=== PATIENT | male | born 1970 | race Caucasian/White ===

== ENCOUNTER 2016-11-29 01:15 | Observation (INO) | payer BC ==
[2016-11-29] MEDS ORDERED: BABY ASPIRIN 81 MG CHEW PO ONE (01:40)
[2016-11-29] MEDS ORDERED: Nitrostat 0.4 MG (ED) SL ONE (01:40)
[2016-11-29] MEDS ORDERED: Sodium Chloride 0.9% 1000 ML 1,000 ML IV SCH (01:45)
[2016-11-29 01:48] LABS: BASOPHIL % 0.6 % (0.0-0.4); Eosinophil % 2.5 % (0.00-5.0); Lymphocytes % 23.9 % (24.0-44.0); Mean Cell Volume 87.6 fl (78-100); Mean Corpuscular Hemoglobin 30.3 pg (26-32); Mean Platelet Volume 9.8 fl (6-9.5); Platelet Count 209 K/mm3 (150-450); Red Blood Count 4.99 M/mm3 (4.1-5.6); Red Cell Distribution Width 12.7 % (11.5-14.0); White Blood Count 8.4 K/mm3 (4.0-10.5)
[2016-11-29] MEDS ORDERED: BABY ASPIRIN 81 MG CHEW ONE (01:50)
[2016-11-29 01:55] LABS: INR 1.05 (0.8-3.0); PROTIME 11.7 SECONDS (8.83-12.87)
--- NOTE | 2016-11-29 02:04 | ERPHSYRPT ---
- History of Present Illness Time Seen by Provider: 11/29/16 01:34 Historian: patient Patient Subjective Stated Complaint: Pt with midsternal chest pain that started at rest while laying on the couch for a few hours. Reports shortness of breath with pain. Reports nausea. Denies vomiting. Reports diaphoresis. Reports that pain is 8/10 dull radiating from midsternum through to back and down left arm. No cardiac hx. Triage Nursing Assessment: Pt alert, oriented, answers all questions appropriately. Skin flushed, warm, dry. Resps non-labored. EKG at triage. library monitor sinus rhythm. SPO2 99% room air. Lung sounds CTA bilat non- labored. Heart RRR. + bowel sounds x 4 quadrants. Physician History: PATIENT WITH A HISTORY OF CROHNS DISEASE COMPLAINS OF ACUTE ONSET SUBSTERNAL CHEST PAINS AT 2330 WITH PERSISTENT DISCOMFORT UNTO ARRIVAL TO EMERGENCY. CHEST PAIN SCALE 5/10 WITH RADIATION TO BACK AND LEFT ARM. HAS A STRONG FAMILY PHYSICIAN OF HEART DISEASE, FATHER WITH MYOCARDIAL INFARCTION FOLLOWED BY STENTS IN HIS MID 50'S. Timing/Duration: today Activities at Onset: none Quality: stabbing Location: substernal Severity of Pain-Max: moderate Severity of Pain-Current: moderate Modifying Factors: Improves With: nothing Prior Chest Pain/Cardiac Workup: no prior chest pain Nitro Today/Relief: provided by EMS Aspirin Treatment Today: no aspirin today Allergies/Adverse Reactions: Penicillins Allergy (Intermediate, Verified 11/29/16 01:31) Rash hydromorphone HCl [From Dilaudid] Adverse Reaction (Intermediate, Verified 11/29 01:31) hallucinating and violent morphine Adverse Reaction (Intermediate, Verified 11/29/16 01:31) hallucinating Home Medications: Mesalamine [Asacol] 0 mg PO 11/29/16 [History] Hx Tetanus, Diphtheria Vaccination/Date Given: Yes Hx Influenza Vaccination/Date Given: No Hx Pneumococcal Vaccination/Date Given: Yes (6 years ago) Immunizations Up to Date: Yes - Review of Systems Constitutional: No Fever, No Chills Eyes: No Symptoms Ears, Nose, & Throat: No Symptoms Respiratory: No Symptoms, No Cough, No Dyspnea Cardiac: Chest Pain, No Edema, No Syncope Abdominal/Gastrointestinal: No Symptoms, Appetite Changes, No Abdominal Pain, No Nausea, No Vomiting, No Diarrhea Genitourinary Symptoms: No Symptoms, No Dysuria Musculoskeletal: No Symptoms, No Back Pain, No Neck Pain Skin: No Rash Neurological: No Dizziness, No Focal Weakness, No Sensory Changes Psychological: No Symptoms Endocrine: No Symptoms All Other Systems: Reviewed and Negative - Past Medical History Pertinent Past Medical History: Yes Neurological History: No Pertinent History ENT History: No Pertinent History Cardiac History: No Pertinent History Respiratory History: No Pertinent History Endocrine Medical History: No Pertinent History Musculoskeletal History: Fractures GI Medical History: Crohns Disease History: No Pertinent History Psycho-Social History: No Pertinent History Male Reproductive Disorders: No Pertinent History - Past Surgical History Past Surgical History: Yes Neuro Surgical History: No Pertinent History Cardiac: No Pertinent History Respiratory: No Pertinent History Gastrointestinal: Appendectomy, Cholecystectomy, Colon Resection Genitourinary: No Pertinent History Musculoskeletal: No Pertinent History Male Surgical History: Vasectomy Other Surgical History: skin grafts - Social History Smoking Status: Never smoker Exposure to second hand smoke: No Drug Use: none Patient Lives Alone: No - Nursing Vital Signs Nursing Vital Signs: Initial Vital Signs Temperature 97.6 F 11/29/16 01:23 Pulse Rate 57 L 11/29/16 01:23 Respiratory Rate 16 11/29/16 01:23 Blood Pressure 140/90 11/29/16 01:23 O2 Sat by Pulse Oximetry 99 11/29/16 01:23 Pain Scale Pain Intensity 0 - Physical Exam General Appearance: no apparent distress, alert Eye Exam: PERRL/EOMI, eyes nml inspection Ears, Nose, Throat Exam: normal ENT inspection, moist mucous membranes Neck Exam: normal inspection, non-tender, supple, full range of motion Respiratory Exam: normal breath sounds, lungs clear, No respiratory distress Cardiovascular Exam: regular rate/rhythm, normal heart sounds Gastrointestinal/Abdomen Exam: soft, normal bowel sounds, No tenderness, No mass Back Exam: normal inspection, No CVA tenderness, No vertebral tenderness Extremity Exam: normal inspection, normal range of motion Neurologic Exam: alert, oriented x 3, cooperative, normal mood/affect, sensation nml, No motor deficits Skin Exam: normal color, warm, dry SpO2: 99 Oxygen Delivery: Room Air - Course EKG Interpreted by Me: RATE, Sinus Rhythm, NORMAL AXIS - Radiology Exams Chest X-ray Interpretation: Interpreted by me, Negative, No Fracture Ordered Tests: Active Orders 24 hr Category Date Time Status Up With Assistance ROUTINE Activity 11/29/16 03:00 Ordered Admission/Status Order ROUTINE Care 11/29/16 02:59 Ordered Call Admit Doctor for Orders ROUTINE Care 11/29/16 02:59 Ordered Stock Associate STAT Care 11/29/16 01:40 Active Code Status Order ROUTINE Care 11/29/16 02:59 Ordered EKG-ER Only STAT Care 11/29/16 01:40 Active IV Care Q6H Care 11/29/16 02:59 Ordered IV Insertion STAT Care 11/29/16 01:40 Active Implement Chest Pain Pathway ROUTINE Care 11/29/16 02:59 Ordered Oxygen-ED Only NASAL CANNULA 2 lpm Care 11/29/16 01:40 Active Galdino Rubin, Apply ROUTINE Care 11/29/16 02:59 Ordered Telemetry ROUTINE Care 11/29/16 02:59 Ordered Vital Signs Q4H Care 11/29/16 02:59 Ordered Weight,Daily 0600 Care 11/29/16 02:59 Ordered Cardiac Diet Diet 11/29/16 Breakfast Ordered CHEST 1 VIEW (PORTABLE) Stat Exams 11/29/16 01:40 Taken CBC W DIFF Stat Lab 11/29/16 01:44 Completed CMP Stat Lab 11/29/16 01:44 Completed D-DIMER QUANTITATION Stat Lab 11/29/16 01:44 Completed LIPID PROFILE AM.LAB Lab 11/29/16 04:00 Ordered NT PRO BNP Stat Lab 11/29/16 01:44 Completed PROTIME WITH INR Stat Lab 11/29/16 01:44 Completed TROPONIN Q3H Lab 11/29/16 01:44 Completed TROPONIN Q3H Lab 11/29/16 04:45 Ordered TROPONIN Q3H Lab 11/29/16 07:45 Ordered TROPONIN Q3H Lab 11/29/16 10:45 Ordered TROPONIN Q3H Lab 11/29/16 13:45 Ordered EKG Q8HX2,QAMX3,PRN RT 11/29/16 02:59 Ordered Pulse Oximetry Q4H RT 11/29/16 02:59 Ordered Transfer Order Routine Transfer 11/29/16 Ordered Medication Summary Generic Name Dose Route Start Last Admin Trade Name Freq PRN Reason Stop Dose Admin Sodium Chloride 1,000 mls @ 100 mls/hr 11/29/16 01:45 11/29/16 01:51 Sodium Chloride 0.9% 1000 Ml IV 12/29/16 01:44 100 mls/hr .Q10H MEHDI Administration Discontinued Medications Generic Name Dose Route Start Last Admin Trade Name Anny PRN Reason Stop Dose Admin Aspirin 324 mg 11/29/16 01:40 11/29/16 01:51 Baby Aspirin 81 Mg Chew PO 11/29/16 01:41 324 mg STAT ONE Administration Aspirin Confirm 11/29/16 01:50 Baby Aspirin 81 Mg Chew Administered 11/29/16 01:51 Dose 324 mg .ROUTE .STK-MED ONE Nitroglycerin 0.4 mg 11/29/16 01:40 11/29/16 01:51 Nitrostat 0.4 Mg (Ed) SL 11/29/16 01:41 0.4 mg STAT ONE Administration Nitroglycerin 1 gm 11/29/16 02:20 11/29/16 02:26 Nitro-Bid 2% Ud Packets TOP 11/29/16 02:21 1 gm STAT ONE Administration Nitroglycerin Confirm 11/29/16 02:25 Nitro-Bid 2% Ud Packets Administered 11/29/16 02:26 Dose 1 gm .ROUTE .STK-MED ONE Lab/Rad Data: Laboratory Result Diagrams 11/29/16 01:44 11/29/16 01:44 Laboratory Results 11/29/16 11/29/16 11/29/16 Range/Units 01:44 01:44 01:44 WBC (4.0-10.5) K/mm3 RBC (4.1-5.6) M/mm3 Hgb (12.5-18.0) gm/dl Hct (42-50) % MCV (78-100) fl MCH (26-32) pg MCHC (32-36) g/dl RDW (11.5-14.0) % Plt Count (150-450) K/mm3 MPV (6-9.5) fl Gran % (36.0-66.0) % Lymphocytes % (24.0-44.0) % Monocytes % (0.0-12.0) % Eosinophils % (0.00-5.0) % Basophils % (0.0-0.4) % Basophils # (0-0.4) INR 1.05 (0.8-3.0) D-Dimer < 200 (0-500) ng/mL Sodium 141 (136-145) mEq/L Potassium 3.4 L (3.5-5.1) mEq/L Chloride 104 (98-107) mEq/L Carbon Dioxide 29.1 (21-32) mEq/L Anion Gap 11.7 (5-15) MEQ/L BUN 8 L (9-20) mg/dL Creatinine 1.16 (0.55-1.30) mg/dl Estimated GFR > 60 ML/MIN Glucose 138 H (70-110) MG/DL Calcium 9.5 (8.5-10.1) mg/dL Total Bilirubin 0.50 (0.2-1.0) mg/dL AST 25 (15-37) U/L ALT 55 (12-78) U/L Alkaline Phosphatase 107 (46-116) U/L Troponin I < 0.017 (0.000-0.056) ng/ml NT-Pro-B Natriuret Pep 12 (0-125) pg/ml Serum Total Protein 6.8 (6.4-8.2) gm/dL Albumin 4.0 (3.4-5.0) g/dL 11/29/16 Range/Units 01:44 WBC 8.4 (4.0-10.5) K/mm3 RBC 4.99 (4.1-5.6) M/mm3 Hgb 15.1 (12.5-18.0) gm/dl Hct 43.7 (42-50) % MCV 87.6 (78-100) fl MCH 30.3 (26-32) pg MCHC 34.6 (32-36) g/dl RDW 12.7 (11.5-14.0) % Plt Count 209 (150-450) K/mm3 MPV 9.8 H (6-9.5) fl Gran % 61.0 (36.0-66.0) % Lymphocytes % 23.9 L (24.0-44.0) % Monocytes % 12.0 (0.0-12.0) % Eosinophils % 2.5 (0.00-5.0) % Basophils % 0.6 (0.0-0.4) % Basophils # 0.05 (0-0.4) INR (0.8-3.0) D-Dimer (0-500) ng/mL Sodium (136-145) mEq/L Potassium (3.5-5.1) mEq/L Chloride (98-107) mEq/L Carbon Dioxide (21-32) mEq/L Anion Gap (5-15) MEQ/L BUN (9-20) mg/dL Creatinine (0.55-1.30) mg/dl Estimated GFR ML/MIN Glucose (70-110) MG/DL Calcium (8.5-10.1) mg/dL Total Bilirubin (0.2-1.0) mg/dL AST (15-37) U/L ALT (12-78) U/L Alkaline Phosphatase (46-116) U/L Troponin I (0.000-0.056) ng/ml NT-Pro-B Natriuret Pep (0-125) pg/ml Serum Total Protein (6.4-8.2) gm/dL Albumin (3.4-5.0) g/dL - Progress Progress: improved Progress Note: 11/29/16 02:14 ADMINISTERED 4 BABY ASA, NTG 0.4MG SL COMPLETE RELIEF OF CHEST PAIN Discussed with : Chad (DISCUSSED WITH DR DOMINGUEZ AT 0255 FOR OBSERVATION) - Departure Time of Disposition: 03:05 Departure Disposition: Observation Clinical Impression: ACUTE CHEST PAIN Condition: Stable Critical Care Time: No Referrals: AURE TRINH [Primary Care Provider] -
[2016-11-29 02:13] LABS: ALKALINE PHOSPHATASE 107 U/L (46-116); ANION GAP 11.7 MEQ/L (5-15); BLOOD UREA NITROGEN 8 mg/dL (9-20); CHLORIDE 104 mEq/L (98-107); Carbon Dioxide 29.1 mEq/L (21-32); Glucose 138 MG/DL (70-110); Potassium 3.4 mEq/L (3.5-5.1); SGOT/AST 25 U/L (15-37); SGPT/ALT 55 U/L (12-78); SODIUM 141 mEq/L (136-145); Total Protein 6.8 gm/dL (6.4-8.2)
[2016-11-29] MEDS ORDERED: NITRO-BID 2% UD PACKETS TOP ONE (02:20)
[2016-11-29] MEDS ORDERED: NITRO-BID 2% UD PACKETS ONE (02:25)
[2016-11-29] MEDS ORDERED: TYLENOL 325 MG PO PRN (02:59)
[2016-11-29] MEDS ORDERED: Senokot-S Tablet PO PRN (02:59)
[2016-11-29] MEDS ORDERED: Nitrostat 0.4 MG Tablet SL PRN (02:59)
[2016-11-29] MEDS ORDERED: MAALOX ES 30 ML UNIT DOSE PO PRN (02:59)
[2016-11-29] MEDS ORDERED: MILK OF MAGNESIA 30 ML PO PRN (02:59)
[2016-11-29] MEDS ORDERED: Zofran 4 MG/2 ML VIAL IV PRN (02:59)
[2016-11-29] MEDS ORDERED: SUBLIMAZE 100 MCG/2 ML IV PRN (03:01)
[2016-11-29] MEDS: NITRO-BID 2% UD PACKETS TOP SCH ×2 (05:22→14:23)
--- NOTE | 2016-11-29 08:34 | PCM.SSS ---
History of Present Illness - Chief Complaint Chief Complaint: chest pain rule out History of Present Illness: is a 45 year old male pt of Dr. Jordan who woke up this morning with 9/10 sharp R sided chest pain radiating to L arm and upper back. He had nausea and diaphoresis. Denied palpitations. Pain resolved w nitro in the ER. He denies any pain currently. Pt has never been a smoker. His father started having CAD sx in his 50s. Pt had a stress test remotely years ago at [facility]. - Review of Systems Respiratory: Short Of Breath (with CP) Cardiac: Chest Pain Psychological: No Anxiety, No Depression, No Suicidal Ideations All Other Systems: Reviewed and Negative Medications & Allergies Home Medications: Home Medication List Mesalamine [Asacol] 0 mg PO DAILY 11/29/16 [History Confirmed 11/29/16] Allergies/Adverse Reactions: Allergies Allergy/AdvReac Type Severity Reaction Status Date / Time Penicillins Allergy Intermediate Rash Verified 11/29/16 01:31 hydromorphone HCl AdvReac Intermediate Verified 11/29/16 01:31 [From Dilaudid] morphine AdvReac Intermediate Verified 11/29/16 01:31 - Past Medical History Past Medical History: Yes Neurological History: No Pertinent History ENT History: No Pertinent History Cardiac History: No Pertinent History Respiratory History: No Pertinent History Endocrine Medical History: No Pertinent History Musculoskelatal History: Fractures GI Medical History: Crohns Disease History: No Pertinent History Pyscho-Social History: No Pertinent History Male Reproductive Disorders: No Pertinent History - Past Surgical History Past Surgical History: Yes Neuro Surgical History: No Pertinent History Cardiac History: No Pertinent History Respiratory Surgery: No Pertinent History GI Surgical History: Appendectomy, Cholecystectomy, Colon Resection Genitourinary Surgical Hx: No Pertinent History Musculskeletal Surgical Hx: No Pertinent History Male Surgical History: Vasectomy Other Surgical History: skin grafts - Social History Smoking Status: Never smoker Exposure to second hand smoke: No Alcohol: None Drug Use: none - Physical Exam Vital Signs: Vital Signs - 24 hr Temp Pulse Resp BP Pulse Ox 11/29/16 07:16 97.9 F 60 18 162/58 97 11/29/16 04:20 97.7 F 59 L 18 122/76 95 11/29/16 03:04 99 11/29/16 02:55 58 L 22 131/68 97 11/29/16 01:23 97.6 F 57 L 16 140/90 99 General Appearance: no apparent distress, alert Neurologic Exam: oriented x 3, cooperative Eye Exam: eyes nml inspection Ears, Nose, Throat Exam: moist mucous membranes Neck Exam: non-tender, other (mild scarring R neck, R cheek), No lymphadenopathy Respiratory Exam: normal breath sounds, lungs clear, No crackles/rales, No rhonchi, No wheezing Cardiovascular Exam: regular rate/rhythm, normal heart sounds, No murmur Gastrointestinal/Abdomen Exam: soft, normal bowel sounds, No tenderness, No distention Extremity Exam: No pedal edema, No swelling Skin Exam: normal color, warm, dry Results - Labs Lab/Micro Results: Lab Results-Last 24 Hours 11/29/16 11/29/16 11/29/16 Range/Units 04:00 04:45 07:30 Troponin I < 0.017 < 0.017 (0.000-0.056) ng/ml Triglycerides 263 H (30-200) mg/dL Cholesterol 126 (100-200) mg/dL LDL Cholesterol 77 (5-99) mg/dL HDL Cholesterol 23 L (35-60) mg/dL Heart Disease Risk Ratio 5.5 - Other Procedures and Tests Respiratory Therapy 11/30/16 05:00 EKG DAILY 12/01/16 05:00 EKG DAILY 12/02/16 05:00 EKG DAILY Assessment/Plan (1) Chest pain Current Visit: Yes Status: Acute Qualifiers: Chest pain type: unspecified Qualified Code(s): R07.9 - Chest pain, unspecified Assessment & Plan: Here to r/o RI. If troponins are negative, pt to f/u with Dr. Jordan outpatient in a week. Code(s): R07.9 - CHEST PAIN, UNSPECIFIED (2) Crohns disease Current Visit: Yes Status: Acute Qualifiers: Gastrointestinal tract location: unspecified location Digestive disease complication type: unspecified complication Qualified Code(s): K50.919 - Crohn 's disease, unspecified, with unspecified complications Assessment & Plan: s/p colon resection. Pt on asachol and denies issues currently. Code(s): K50.90 - CROHN'S DISEASE, UNSPECIFIED, WITHOUT COMPLICATIONS Hospital Summary - Hospital Course Hospital Course: Pt admitted for chest pain to r/o RI. His first 2 troponins are negative; if all 5 are negative will discharge him to home. I've instructed him to f/u with his PCP, DR. Jordan, for possible stress testing. - Vitals & Intake/Output Vital Signs: Vital Signs Temperature 97.9 F 11/29/16 07:16 Pulse Rate 60 11/29/16 07:16 Respiratory Rate 18 11/29/16 07:16 Blood Pressure 162/58 11/29/16 07:16 O2 Sat by Pulse Oximetry 97 11/29/16 07:16 Intake & Output: Intake & Output 11/26/16 11/27/16 11/28/16 11/29/16 11:59 11:59 11:59 11:59 Weight 88.496 kg - Lab Result Diagrams: 11/29/16 01:44 11/29/16 01:44 Lab Results-Last 24 Hrs: Lab Results-Last 24 Hours 11/29/16 11/29/16 11/29/16 Range/Units 04:00 04:45 07:30 Troponin I < 0.017 < 0.017 (0.000-0.056) ng/ml Triglycerides 263 H (30-200) mg/dL Cholesterol 126 (100-200) mg/dL LDL Cholesterol 77 (5-99) mg/dL HDL Cholesterol 23 L (35-60) mg/dL Heart Disease Risk Ratio 5.5 - Procedures and Test Procedures and Tests throughout Hospitalization: Therapy Orders & Screens 11/29/16 09:22 EKG ROUTINE Comment: Diagnosis: Chest pain rule out ACS 11/30/16 05:00 EKG DAILY Comment: Diagnosis: Chest pain rule out ACS 12/01/16 05:00 EKG DAILY Comment: Diagnosis: Chest pain rule out ACS 12/02/16 05:00 EKG DAILY Comment: Diagnosis: Chest pain rule out ACS - Discharge Disposition: Home, Self-Care Condition: Stable Prescriptions: No Action Mesalamine [Asacol] 0 mg PO DAILY Follow up with: AURE TRINH [Primary Care Provider] - Forms: Patient Portal Information
--- NOTE | 2016-11-29 09:34 | XRAY ---
Indication: Right-sided chest pain. Comparison: March 22, 2012. Portable chest unchanged again hyperinflated with stable hilar calcified nodes. Remaining heart, lungs, and bony thorax normal.
[2016-11-29] MEDS ORDERED: ENOXAPARIN SODIUM SQ SCH (10:00)
[2016-11-29] MEDS ORDERED: Ecotrin 325 MG PO SCH (10:00)
[2016-11-29 11:37] VITALS: PULSE 61
[2016-11-29 15:40] VITALS: BP 100/60; O2SAT 96
== END 2016-11-29 16:00 | disposition home or self-care (01) ==
LOC: ED 01:15 → MED SURG 03:20
PROVIDERS: ADMIT Family Medicine; ATTEND Family Medicine
DX: R07.9 Chest pain, unspecified (principal); K50.90 Crohn's disease, unspecified, without complications
CPT/HCPCS: 36000; 36415; 71010; 80053; 80061; 83721; 83880; 84484; 85025; 85379; 85610; 93005; 93041; 93268; 96360; 99285; G0378; J1650; A9270-GY